=== PATIENT | male | born 1975 | race Two or more races ===

== ENCOUNTER 2022-12-27 06:00 | Day surgery (SDC) | payer OTHER ==
[~2022-12-27] VITALS: Ht 193 cm; Wt 124.7 kg
[2022-12-27] MEDS ORDERED: PERCOCET 5-3251 EACH PO (11:05)
[2022-12-27] MEDS ORDERED: COLACE100 MG PO (11:05)
== END 2022-12-27 14:00 | disposition home or self-care (01) ==
LOC: CIR.AMB 06:00
PROVIDERS: ATTEND Surgery
DX: K62.0 Anal polyp (principal); K63.5 Polyp of colon; K62.89 Other specified diseases of anus and rectum; K64.8 Other hemorrhoids; K64.1 Second degree hemorrhoids; Z20.822 Contact with and (suspected) exposure to COVID-19